=== PATIENT | female | born 1955 | race Two or more races ===

== ENCOUNTER 2022-12-10 12:29 | Inpatient (IN) | payer MEDICAID ==
[~2022-12-10] VITALS: Ht 142.2 cm; Wt 66.0 kg
[2022-12-10 13:27] LABS: Basophils # (auto) 0.1 10 ^3/uL (0-0.2); Basophils % (auto) 0.7 % (0.0-2.0); Eosinophils # (auto) 0.3 10 ^3/uL (0-0.8); Eosinophils % (auto) 3.1 % (0.0-7.0); Hematocrit 30.7 % (36.0-46.0); Hemoglobin 10.4 g/dL (12.2-16.2); Lymphocytes % (auto) 21.2 % (10.0-50.0); Mean Corpuscular Hemoglobin 29.1 pg (28.0-32.0); Mean Corpuscular Hgb Conc. 33.8 g/dL (32.0-36.0); Mean Corpuscular Volume 86.1 fL (80.0-100.0); Monocytes # (auto) 0.6 10 ^3/uL (0-1.3); Monocytes % (auto) 5.8 % (0.0-12.0); Neutrophils # (auto) 6.6 10 ^3/uL (1.6-8.6); Neutrophils % (auto) 69.2 % (37.0-80.0); Nucleated Red Blood Cells % 0.1 %; Red Blood Cells 3.57 10^6/uL (4.0-5.20); Red Cell Distribution Width 12.7 % (11.8-14.3); White Blood Cell 9.6 10^3/uL (4.4-10.8)
[2022-12-10 13:34] LABS: Urine Bacteria NONE SEEN /hpf (None Seen); Urine Blood Negative /uL (Negative); Urine Hyaline Cast FEW /lpf (0 - 2); Urine WBC 4 /hpf (0 - 5)
[2022-12-10 13:46] LABS: Albumin 2.9 g/dL (3.4-5.0); Calcium 8.6 mg/dL (8.5-10.1)
[2022-12-10 13:49] LABS: Bilirubin, Total 0.3 mg/dL (0.2-1.0); Total Protein 6.9 g/dL (6.4-8.2)
[2022-12-10 13:54] LABS: Potassium 5.6 mmol/L (3.5-5.1)
[2022-12-10] MEDS ORDERED: SODIUM BICARBONATE 8.4 % INJ 50ML VIAL IV ONE (14:15)
[2022-12-10] MEDS ORDERED: CALCIUM GLUC 1,000mg/50ml-NS 50 ML IV ONE (14:15)
[2022-12-10] MEDS ORDERED: ONDANSETRON HCL 4 MG/2 ML VIAL IV PRN (15:00)
[2022-12-10] MEDS ORDERED: HYDROcodone-ACET 5/325MG TAB PO PRN (15:00)
[2022-12-10] MEDS ORDERED: DOCUSATE SOD 100 MG CAP PO PRN (15:00)
[2022-12-10] MEDS ORDERED: MORPHINE SULFATE INJ 2 MG/ml SYRG IV PRN (15:00)
[2022-12-10] MEDS ORDERED: ACETAMINOPHEN 325 MG TAB PO PRN (15:00)
[2022-12-10] MEDS ORDERED: NITROGLYCERIN 0.4 MG SL TAB SL PRN (15:00)
[2022-12-10] MEDS ORDERED: DEXTROSE (50%) 50ML SYRG IV PRN (16:45)
[2022-12-10] MEDS ORDERED: SODIUM ZIRCONIUM CYCL 10 GM PAK PO ONE (16:45)
[2022-12-10] MEDS ORDERED: FURO80TA3 PO (16:53)
[2022-12-10] MEDS ORDERED: AMLO-489 PO (16:53)
[2022-12-10] MEDS ORDERED: LISI40TA11 PO (16:53)
[2022-12-10] MEDS ORDERED: EZET-10 PO (16:53)
[2022-12-10] MEDS ORDERED: CARV12.544 PO (16:53)
[2022-12-10] MEDS ORDERED: ALOG1TAB2 PO (16:53)
[2022-12-10] MEDS ORDERED: ASPI1TAB37 PO (16:53)
[2022-12-10] MEDS ORDERED: ATOR40TA52 PO (16:53)
[2022-12-10] MEDS ORDERED: GLIM4TAB42 PO (16:53)
[2022-12-10] MEDS: SODIUM CHLORIDE 0.9% 1,000 ML IV SCH (18:49)
[2022-12-10] MEDS: ACCU-CHEK COMFORT CURVE STRIP VI SCH (18:49)
[2022-12-10] MEDS: InsuLIN REG 1unit/0.01ml Soln (100units/ml) SC SCH (18:51)
[2022-12-10] MEDS ORDERED: SODIUM CHLOR 0.9% PF (SALINE LOCK) 10ML VIAL/SYR IV SCH (22:00)
[2022-12-10] MEDS: CARVEDILOL 12.5 MG TAB PO SCH (22:23)
[2022-12-10] MEDS: ATORVASTATIN 20 MG TAB PO SCH (22:23)
[2022-12-11 00:04] VITALS: BP 138/62
[2022-12-11] MEDS: ACCU-CHEK COMFORT CURVE STRIP VI SCH ×4 (00:15→18:34)
[2022-12-11 05:08] LABS: Basophils # (auto) 0.1 10 ^3/uL (0-0.2); Basophils % (auto) 0.7 % (0.0-2.0); Eosinophils # (auto) 0.3 10 ^3/uL (0-0.8); Hematocrit 27.3 % (36.0-46.0); Hemoglobin 9.5 g/dL (12.2-16.2); Lymphocytes # (auto) 2.6 10 ^3/uL (0.4-5.4); Lymphocytes % (auto) 28.2 % (10.0-50.0); Mean Corpuscular Hemoglobin 29.7 pg (28.0-32.0); Mean Corpuscular Hgb Conc. 34.6 g/dL (32.0-36.0); Mean Corpuscular Volume 85.8 fL (80.0-100.0); Monocytes # (auto) 0.7 10 ^3/uL (0-1.3); Neutrophils # (auto) 5.6 10 ^3/uL (1.6-8.6); Neutrophils % (auto) 60.1 % (37.0-80.0); Nucleated Red Blood Cells % 0.1 %; Red Blood Cells 3.19 10^6/uL (4.0-5.20); Red Cell Distribution Width 12.9 % (11.8-14.3); White Blood Cell 9.3 10^3/uL (4.4-10.8)
[2022-12-11 05:22] LABS: Albumin 2.5 g/dL (3.4-5.0); BUN/Creatinine Ratio 21.8 (10.0-20.0); Calcium 8.7 mg/dL (8.5-10.1)
[2022-12-11 05:47] LABS: Bilirubin, Total 0.4 mg/dL (0.2-1.0); Total Protein 6.4 g/dL (6.4-8.2)
[2022-12-11] MEDS: InsuLIN REG 1unit/0.01ml Soln (100units/ml) SC SCH ×4 (06:00→18:34)
[2022-12-11] MEDS: PANTOPRAZOLE 40 MG/10 ML VIAL INJ IV SCH (10:37)
[2022-12-11] MEDS: EZETIMIBE 10 MG TABLETS PO SCH (10:38)
[2022-12-11] MEDS: ALOGLIPTIN BENZOATE 25 MG PO SCH (10:38)
[2022-12-11] MEDS: CARVEDILOL 12.5 MG TAB PO SCH ×2 (10:40→22:27)
[2022-12-11] MEDS: FUROSEMIDE 40 MG TAB PO SCH (10:54)
[2022-12-11] MEDS: GLIMEPIRIDE 2 MG TAB PO SCH (10:54)
[2022-12-11] MEDS: ASPirin-EC 81 mg tab PO SCH (10:54)
[2022-12-11] MEDS: LISINOPRIL 20 MG TAB PO SCH (10:55)
[2022-12-11] MEDS: amLODIPine BESYLATE 5 MG TAB PO SCH (10:55)
[2022-12-11] MEDS: SODIUM CHLORIDE 0.9% 1,000 ML IV SCH (13:05)
[2022-12-11 14:31] LABS: Protein, Urine 283.9 mg/dL (0.0-11.9)
[2022-12-11 16:15] LABS: BUN/Creatinine Ratio 20.5 (10.0-20.0); Calcium 8.7 mg/dL (8.5-10.1); Potassium 4.1 mmol/L (3.5-5.1)
[2022-12-11] MEDS: ATORVASTATIN 20 MG TAB PO SCH (22:27)
[2022-12-12] MEDS: ACCU-CHEK COMFORT CURVE STRIP VI SCH ×3 (01:00→12:00)
[2022-12-12] MEDS: InsuLIN REG 1unit/0.01ml Soln (100units/ml) SC SCH ×3 (01:06→12:00)
[2022-12-12 05:00] VITALS: BP 136/60
[2022-12-12 06:24] LABS: Potassium 4.4 mmol/L (3.5-5.1)
[2022-12-12 06:54] LABS: BUN/Creatinine Ratio 18.8 (10.0-20.0); Calcium 8.7 mg/dL (8.5-10.1)
[2022-12-12 08:00] VITALS: BP 111/54
[2022-12-12 09:00] VITALS: BP 111/54
[2022-12-12] MEDS: ALOGLIPTIN BENZOATE 25 MG PO SCH (10:00)
[2022-12-12] MEDS: EZETIMIBE 10 MG TABLETS PO SCH (10:00)
[2022-12-12] MEDS: PANTOPRAZOLE 40 MG/10 ML VIAL INJ IV SCH (10:38)
[2022-12-12] MEDS: amLODIPine BESYLATE 5 MG TAB PO SCH (10:39)
[2022-12-12] MEDS: CARVEDILOL 12.5 MG TAB PO SCH (10:39)
[2022-12-12] MEDS: LISINOPRIL 20 MG TAB PO SCH (10:40)
[2022-12-12] MEDS: ASPirin-EC 81 mg tab PO SCH (10:41)
[2022-12-12] MEDS: GLIMEPIRIDE 2 MG TAB PO SCH (10:42)
[2022-12-12] MEDS: FUROSEMIDE 40 MG TAB PO SCH (10:42)
[2022-12-12] MEDS: SODIUM CHLORIDE 0.9% 1,000 ML IV SCH ×2 (12:30→13:30)
[2022-12-12] MEDS ORDERED: cefTRIAXone 1GM/50ML D5W 50 ML IV SCH (12:30)
[2022-12-12 13:00] VITALS: BP 115/60
[2022-12-12 16:53] VITALS: BP 128/62
[2022-12-12 17:48] VITALS: BP 128/62
== END 2022-12-12 19:14 | disposition home or self-care (01) | DRG 469 ==
LOC: ER 12:29 → TELE 14:57 → TELE-CENTR 12-11 17:31 → TELE-WESTW 12-11 22:55
PROVIDERS: ADMIT Nurse Practitioner Family; ATTEND Internal Medicine
DX: N17.9 Acute kidney failure, unspecified (principal); I12.0 Hypertensive chronic kidney disease with stage 5 chronic kidney disease or end stage renal disease; E11.22 Type 2 diabetes mellitus with diabetic chronic kidney disease; E87.5 Hyperkalemia; N18.4 Chronic kidney disease, stage 4 (severe); E11.65 Type 2 diabetes mellitus with hyperglycemia; Z20.822 Contact with and (suspected) exposure to COVID-19; E78.5 Hyperlipidemia, unspecified; I12.9 Hypertensive chronic kidney disease with stage 1 through stage 4 chronic kidney disease, or unspecified chronic kidney disease; Z53.29 Procedure and treatment not carried out because of patient's decision for other reasons; E66.9 Obesity, unspecified; Z68.32 Body mass index [BMI] 32.0-32.9, adult; Z86.73 Personal history of transient ischemic attack (TIA), and cerebral infarction without residual deficits; Z83.3 Family history of diabetes mellitus; Z90.49 Acquired absence of other specified parts of digestive tract
CPT/HCPCS: 36415; 71046; 74176; 76775; 80048; 80053; 81001; 82150; 82570; 82962; 83036; 83690; 84156; 84300; 85025; 87426; 93005; 99291; C9113; G0378; J0696; J1815